=== PATIENT | female | born 1995 | race Caucasian/White ===

== ENCOUNTER 2024-11-08 10:49 | Emergency (ER) | payer OTHER, SELFPAY ==
[2024-11-08 11:06] VITALS: BP 125/90; PULSE 116; RESP 20; TEMP 36.7; O2SAT 100
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
== END 2024-11-08 11:57 | disposition home or self-care (01) ==
PROVIDERS: PCP Physician Assistant
DX: L55.1 Sunburn of second degree (principal); L55.0 Sunburn of first degree; H61.22 Impacted cerumen, left ear
CPT/HCPCS: 69209; 99203; A9270; G0463